=== PATIENT | female | born 1970 | race Caucasian/White ===

== ENCOUNTER → 2016-11-03 | Outpatient (CLI) | payer OTHER ==
--- NOTE | 2016-11-04 10:12 | KCIC ---
Bilateral digital screening mammograms with CAD: HISTORY Routine screening COMPARISON Comparison is made to previous examinations dated 02/16/2013. FINDINGS Breast density category C. The skin and nipples show no abnormalities. No abnormal lymph nodes are seen in the axilla. The breast parenchyma shows heterogeneous density. There are no dominant masses, suspicious calcifications or architectural distortions. IMPRESSION Nodular density inferiorly adjacent to the implant on the right oblique view. Small nodules in the lower left breast around the 5 to 6 o'clock positions. Additional coned compression views of the right breast and ultrasound examination bilaterally is recommended. This study was interpreted with the benefit of Computerized Aided Detection (CAD). Mammography is not 100% sensitive in detecting breast cancer. Therefore, a self breast exam and a clinical breast exam are very important. A negative mammogram does not negate a clinically suspicious finding and should not result in a delay in biopsying a clinically suspicious abnormality. BI-RADS category 0: Incomplete. Additional imaging is recommended. This patient's information has been entered into a reminder system for the patient to be notified with the results of this examination and a target date for her next mammograms. Electronically signed by: Bindu Hidalgo MD (November 04, 2016 10:11:05)
== END | disposition home or self-care (01) ==
LOC: KCIC MAMMO 14:16
PROVIDERS: ATTEND Family Medicine
DX: Z12.31 Encounter for screening mammogram for malignant neoplasm of breast (principal)
CPT/HCPCS: G0202; 77067

== ENCOUNTER → 2016-11-10 | Outpatient (CLI) | payer OTHER ==
--- NOTE | 2016-11-10 17:36 | KCIC ---
Diagnostic digital mammograms right breast: Reason for examination: Density on screening mammogram. History of breast reduction. Comparison is made to previous studies dated 11/03/2016 and 02/16/2013. Cone compression obliques view of the right breast was performed. A parenchymal density appears to persist in the posterior-inferior right breast just beneath the pectoralis muscle in implant. This corresponds with previous reduction scarring. No other focal abnormalities are seen. Impression: Postop changes inferiorly in the right breast reduction. No suspicious abnormalities seen. BI-RADS category 0: Incomplete. Ultrasound to follow. Bilateral breast ultrasound: Reason for examination: Parenchymal density inferiorly in the right breast. Nodules in the left breast. Ultrasound examination of the right breast shows a small fibrocystic lesion 3.3 millimeters in size in the 8 o'clock position 7 centimeters from the nipple which has no abnormal vascular flow and has a benign appearance. No other focal right breast lesions are seen. No abnormal lymph nodes are seen in the right axilla. In the left breast, there is a hypoechoic lesion measuring 3.5 x 4.9 x 3 millimeters in greatest dimension which is taller than wide. May represent a cyst but further evaluation with aspiration/biopsy is recommended. In the 6 o'clock position 5 centimeters from the nipple, there is a 4.9 millimeter circumscribed lesion in parallel orientation consistent with a small cyst. In the 5 o'clock position 5 centimeters from the nipple, there is a hypoechoic complex lesion measuring 4.2 x 7.5 x 3.4 millimeters in greatest dimensiona. Further evaluation with ultrasound-guided biopsy is recommended. Impression: 7.5 millimeter complex lesion in the left breast at the 5 o'clock position 5 centimeters from the nipple. Recommend ultrasound-guided biopsy. Hypoechoic 4.9 millimeter lesion in the left breast in the 6 o'clock position 5 centimeters from the nipple which is taller than wide. This could represent a small cyst but further evaluation with aspiration/biopsy is recommended. Small benign appearing fibrocystic lesion in the right breast. BI-RADS category 4: Suspicious. Patient was notified with these findings upon completion of the examination and was instructed to followup with her clinician Dr. Evelyn Winn for further evaluation with biopsies. Electronically signed by: Bindu Hidalgo MD (November 10, 2016 17:34:52)
== END | disposition home or self-care (01) ==
LOC: KCIC MAMMO 14:28
PROVIDERS: ATTEND Family Medicine
DX: R92.8 Other abnormal and inconclusive findings on diagnostic imaging of breast (principal)
CPT/HCPCS: 76641; G0206; 77065